=== PATIENT | female | born 1965 | race Caucasian/White ===

== ENCOUNTER 2022-11-26 21:59 | Inpatient (IN) | payer MEDICAID, MEDICARE ==
[~2022-11-26] VITALS: Ht 162.6 cm; Wt 64.9 kg
[2022-11-26] MEDS ORDERED: IPRATROPIUM BROMIDE (0.02%) 0.5MG/2.5ML NEB HHN STA (22:18)
[2022-11-26] MEDS ORDERED: ALBUTEROL (0.083%) 2.5MG/3ML NEB HHN STA (22:18)
[2022-11-26 22:50] LABS: HEMATOCRIT. 30.9 % (36.0-48.0); HEMOGLOBIN. 10.3 g/dL (12.0-16.0); MEAN CORPUSCULAR HEMOGLOBIN 28.8 pg (28.0-32.0); MEAN CORPUSCULAR VOLUME 86.3 fL (81.0-99.0); MEAN PLATELET VOLUME 7.2 fl (7.4-10.4); PLATELET 67 x1000/uL (130-400); RED BLOOD CELL COUNT 3.58 mill/uL (4.2-5.4); RED CELL DISTRIBUTION WIDTH 19.2 % (11.6-14.6)
[2022-11-26 22:59] LABS: CHLORIDE 108 mEq/L (98-107)
[2022-11-26 23:08] LABS: PLATELET ESTIMATE DECREASED
[2022-11-26] MEDS ORDERED: PREDNISONE 20MG TABLET PO STA (23:41)
[2022-11-27] MEDS ORDERED: MORPHINE SULFATE 4 MG/ML CPJ (NOT FOR IM USE) IV ONE (00:15)
[2022-11-27] MEDS ORDERED: CEFTRIAXONE 1GM PREMIX 50 ML IV ONE (00:15)
[2022-11-27] MEDS ORDERED: VANCOMYCIN 1G PREMIX 200 ML IV SCH (00:15)
[2022-11-27] MEDS ORDERED: IPRATROPIUM BROMIDE (0.02%) 0.5MG/2.5ML NEB HHN PRN (11:15)
[2022-11-27 12:00] VITALS: BP 96/55
[2022-11-27 12:51] VITALS: BP 96/55
[2022-11-27] MEDS ORDERED: IPRATROPIUM/ALBUTEROL 0.5-3(2.5)MG/3ML NEB HHN PRN (14:30)
[2022-11-27] MEDS ORDERED: ACETAMINOPHEN 325MG TABLET PO PRN (14:30)
[2022-11-27] MEDS ORDERED: ONDANSETRON HCL 4MG/2ML INJ IV PRN (14:30)
[2022-11-27] MEDS ORDERED: DOCUSATE SODIUM 100MG CAPSULE PO PRN (14:30)
[2022-11-27] MEDS: FAMOTIDINE 20MG/2ML VIAL IV SCH ×2 (14:53→22:34)
[2022-11-27] MEDS: LORAZEPAM 0.5MG TABLET PO PRN (14:53)
[2022-11-27] MEDS: ACETAMINOPHEN 325MG TABLET PO PRN (14:53)
[2022-11-27] MEDS: METHYLPREDNISOLONE SOD SUCC 40 MG/ML VIAL IV SCH ×2 (14:53→22:34)
[2022-11-27] MEDS ORDERED: CEFTRIAXONE 1GM PREMIX 50 ML IV SCH (15:30)
[2022-11-27 15:59] LABS: BG BASE EXCESS -6.7 mmol/L (-2.0-2.0); BG DEOXYHEMOGLOBIN 4.6 % (0.0-5.0); BG FRACTION INSPIRED OXYGEN 40; BG METHEMOGLOBIN 0.3 % (0.0-1.5); BG OXYGEN SATURATION 95.4 % (92.0-98.5); BG OXYHEMOGLOBIN 95.1 % (94.0-97.0); BG PCO2 28.3 mmHg (35.0-45.0); BG PH 7.397 (7.350-7.450); BG PO2 78.1 mmHg (75.0-100.0); BG SAMPLE SITE RIGHT RADIAL; BG TOTAL HEMOGLOBIN 10.1 g/dL (12.0-18.0); BG VENT MODE NASAL CANNULA
[2022-11-27 16:00] VITALS: BP 108/69
[2022-11-27] MEDS ORDERED: NALOXONE HCL 0.4MG/ML VIAL IV PRN (17:30)
[2022-11-27] MEDS: FUROSEMIDE 40MG/4ML VIAL IVP SCH (18:52)
[2022-11-27] MEDS: VANCOMYCIN 750MG PREMIX 150 ML IV SCH (18:52)
[2022-11-27 20:00] VITALS: BP 114/65
[2022-11-27] MEDS: HYDROCODONE/ACETAMINOPHEN 5/325MG TABLET PO PRN (23:24)
[2022-11-28] VITALS: BP 115/70
[2022-11-28] MEDS: CEFTRIAXONE 1,000 MG in DEXTROSE 5% WATER 50 ML IV SCH (01:07)
[2022-11-28 04:00] VITALS: BP 132/73
[2022-11-28] MEDS: VANCOMYCIN 750MG PREMIX 150 ML IV SCH ×2 (05:12→18:50)
[2022-11-28] MEDS: LORAZEPAM 0.5MG TABLET PO PRN ×2 (05:25→09:49)
[2022-11-28] MEDS: HYDROCODONE/ACETAMINOPHEN 5/325MG TABLET PO PRN ×3 (05:25→18:57)
[2022-11-28 06:40] LABS: HEMATOCRIT. 27.7 % (36.0-48.0); HEMOGLOBIN. 9.1 g/dL (12.0-16.0); MEAN CORPUSCULAR HEMOGLOBIN 28.7 pg (28.0-32.0); MEAN CORPUSCULAR VOLUME 87.4 fL (81.0-99.0); MEAN PLATELET VOLUME 7.9 fl (7.4-10.4); RED BLOOD CELL COUNT 3.17 mill/uL (4.2-5.4); RED CELL DISTRIBUTION WIDTH 19.7 % (11.6-14.6)
[2022-11-28] MEDS: METHYLPREDNISOLONE SOD SUCC 40 MG/ML VIAL IV SCH (07:15)
[2022-11-28 08:27] LABS: PLATELET 37 x1000/uL (130-400)
[2022-11-28] MEDS ORDERED: TRAZODONE HCL 50MG TABLET PO PRN (09:00)
[2022-11-28] MEDS: FAMOTIDINE 20MG/2ML VIAL IV SCH ×2 (09:49→21:15)
[2022-11-28] MEDS: ARIPIPRAZOLE 5MG TABLET PO SCH (09:49)
[2022-11-28] MEDS: FUROSEMIDE 40MG/4ML VIAL IVP SCH (09:49)
[2022-11-28] MEDS ORDERED: LACTULOSE 20G/30ML UDC PO PRN (10:00)
[2022-11-28] MEDS: FUROSEMIDE 40MG TABLET PO SCH (11:41)
[2022-11-28 11:42] LABS: PLATELET ESTIMATE MARKEDLY DECREASED
[2022-11-28 12:00] VITALS: BP 133/79
[2022-11-28 13:22] LABS: INR 1.4; PROTHROMBIN TIME 14.9 sec (9.6-11.0)
[2022-11-28] MEDS: IPRATROPIUM BROMIDE (0.02%) 0.5MG/2.5ML NEB HHN SCH ×2 (14:00→20:46)
[2022-11-28 15:14] LABS: HEPATITIS B SURFACE ANTIGEN NEGATIVE
[2022-11-28 16:00] VITALS: BP 129/80
[2022-11-28] MEDS: PREDNISONE 20MG TABLET PO SCH (17:10)
[2022-11-28 20:00] VITALS: BP 133/71
[2022-11-28] MEDS: BUDESONIDE 0.5MG/2ML NEB HHN SCH (20:46)
[2022-11-29] VITALS: BP 135/74
[2022-11-29] MEDS: CEFTRIAXONE 1,000 MG in DEXTROSE 5% WATER 50 ML IV SCH (01:08)
[2022-11-29] MEDS: IPRATROPIUM BROMIDE (0.02%) 0.5MG/2.5ML NEB HHN SCH ×3 (01:09→19:56)
[2022-11-29 04:00] VITALS: BP 130/79
[2022-11-29] MEDS: VANCOMYCIN 750MG PREMIX 150 ML IV SCH ×3 (04:22→22:14)
[2022-11-29 08:00] VITALS: BP 132/72
[2022-11-29] MEDS: BUDESONIDE 0.5MG/2ML NEB HHN SCH ×2 (08:16→19:56)
[2022-11-29] MEDS: HYDROCODONE/ACETAMINOPHEN 5/325MG TABLET PO PRN (08:52)
[2022-11-29] MEDS: FUROSEMIDE 40MG TABLET PO SCH (08:52)
[2022-11-29] MEDS: PREDNISONE 20MG TABLET PO SCH ×2 (08:52→17:43)
[2022-11-29] MEDS: ARIPIPRAZOLE 5MG TABLET PO SCH (08:52)
[2022-11-29] MEDS: FAMOTIDINE 20MG/2ML VIAL IV SCH ×2 (08:53→20:35)
[2022-11-29 12:00] VITALS: BP 155/85
[2022-11-29] MEDS: HYDROCODONE/ACETAMINOPHEN 10/325MG TABLET PO PRN ×2 (13:18→17:43)
[2022-11-29] MEDS: LORAZEPAM 0.5MG TABLET PO PRN ×2 (14:31→20:35)
[2022-11-29 14:45] LABS: HEMATOCRIT. 27.3 % (36.0-48.0); MEAN CORPUSCULAR HEMOGLOBIN 28.3 pg (28.0-32.0); MEAN CORPUSCULAR VOLUME 85.9 fL (81.0-99.0); MEAN PLATELET VOLUME 8.8 fl (7.4-10.4); RED BLOOD CELL COUNT 3.17 mill/uL (4.2-5.4); RED CELL DISTRIBUTION WIDTH 19.7 % (11.6-14.6)
[2022-11-29 14:55] LABS: PLATELET 48 x1000/uL (130-400)
[2022-11-29 15:19] LABS: PLATELET ESTIMATE MARKEDLY DECREASED
[2022-11-29 16:00] VITALS: BP 148/81
[2022-11-29 20:00] VITALS: BP 153/81
[2022-11-30] VITALS: BP 155/73
[2022-11-30] MEDS: IPRATROPIUM BROMIDE (0.02%) 0.5MG/2.5ML NEB HHN SCH ×2 (00:51→20:57)
[2022-11-30] MEDS: CEFTRIAXONE 1,000 MG in DEXTROSE 5% WATER 50 ML IV SCH (01:47)
[2022-11-30] MEDS: HYDROCODONE/ACETAMINOPHEN 10/325MG TABLET PO PRN (01:54)
[2022-11-30 04:00] VITALS: BP 153/80
[2022-11-30] MEDS: LORAZEPAM 0.5MG TABLET PO PRN (04:31)
[2022-11-30] MEDS: VANCOMYCIN 750MG PREMIX 150 ML IV SCH ×3 (05:02→20:58)
[2022-11-30] MEDS: PREDNISONE 20MG TABLET PO SCH ×2 (06:22→19:00)
[2022-11-30 08:00] VITALS: BP 121/82
[2022-11-30] MEDS: ARIPIPRAZOLE 5MG TABLET PO SCH (09:15)
[2022-11-30] MEDS: FAMOTIDINE 20MG/2ML VIAL IV SCH (09:15)
[2022-11-30] MEDS: FUROSEMIDE 40MG TABLET PO SCH (09:15)
[2022-11-30] MEDS: METHADONE HCL 10MG TABLET PO SCH ×2 (11:56→19:01)
[2022-11-30 12:00] VITALS: BP 152/75
[2022-11-30 13:11] LABS: CHLORIDE 105 mEq/L (98-107)
[2022-11-30 16:00] VITALS: BP 150/74
[2022-11-30 20:00] VITALS: BP 156/75
[2022-11-30] MEDS: BUDESONIDE 0.5MG/2ML NEB HHN SCH (20:57)
[2022-11-30] MEDS: FAMOTIDINE 20MG TABLET PO SCH (20:59)
[2022-12-01] VITALS (7 sets, daily range): BP systolic 141–155; BP diastolic 60–83
[2022-12-01] MEDS: CEFTRIAXONE 1,000 MG in DEXTROSE 5% WATER 50 ML IV SCH (00:23)
[2022-12-01] MEDS: IPRATROPIUM BROMIDE (0.02%) 0.5MG/2.5ML NEB HHN SCH ×4 (01:00→22:03)
[2022-12-01] MEDS: VANCOMYCIN 750MG PREMIX 150 ML IV SCH (05:36)
[2022-12-01] MEDS: METHYLPREDNISOLONE SOD SUCC 40 MG/ML VIAL IV SCH ×3 (05:44→19:06)
[2022-12-01 06:45] LABS: CHLORIDE 106 mEq/L (98-107)
[2022-12-01 07:14] LABS: HEMATOCRIT. 26.5 % (36.0-48.0); HEMOGLOBIN. 8.7 g/dL (12.0-16.0); MEAN PLATELET VOLUME 8.2 fl (7.4-10.4); PLATELET 54 x1000/uL (130-400); RED BLOOD CELL COUNT 3.12 mill/uL (4.2-5.4); RED CELL DISTRIBUTION WIDTH 19.5 % (11.6-14.6)
[2022-12-01] MEDS: FAMOTIDINE 20MG TABLET PO SCH ×2 (08:28→20:46)
[2022-12-01] MEDS: FUROSEMIDE 40MG TABLET PO SCH (08:29)
[2022-12-01] MEDS: HYDROXYCHLOROQUINE SULFATE 200MG TABLET PO SCH (08:29)
[2022-12-01] MEDS: METHADONE HCL 10MG TABLET PO SCH ×2 (08:29→19:05)
[2022-12-01] MEDS: ARIPIPRAZOLE 5MG TABLET PO SCH (08:30)
[2022-12-01 08:57] LABS: CREATINE KINASE 25 IU/L (26-192)
[2022-12-01] MEDS: BUDESONIDE 0.5MG/2ML NEB HHN SCH ×2 (09:02→22:03)
[2022-12-01 09:07] LABS: HIV SCREEN 4G Non Reactive (Non Reactive)
[2022-12-01 10:30] LABS: VANCOMYCIN TROUGH 82.2 ug/mL (5.0-10.0)
[2022-12-01 11:24] LABS: PLATELET ESTIMATE DECREASED
[2022-12-01] MEDS: SODIUM HYPOCHLORITE SOLUTION (0.5%)FULL STRENGTH TOP SCH ×2 (12:00→19:05)
[2022-12-01] MEDS: LORAZEPAM 0.5MG TABLET PO PRN (15:30)
[2022-12-01] MEDS: FUROSEMIDE 40MG/4ML VIAL IVP SCH (19:16)
[2022-12-01 22:44] LABS: CLARITY URINE CLEAR (CLEAR); COLOR URINE YELLOW (YELLOW); KETONES URINE NEGATIVE (NEGATIVE); LEUKOCYTE ESTERASE URINE NEGATIVE (NEGATIVE); NITRITE URINE NEGATIVE (NEGATIVE); OCCULT BLOOD URINE 3+ (NEGATIVE); PROTEIN URINE NEGATIVE (NEGATIVE); SPECIFIC GRAVITY URINE 1.007 (1.005-1.030); UROBILINOGEN URINE 0.2 E.U./dL (0.2-1.0)
[2022-12-02] VITALS: BP 168/79
[2022-12-02] MEDS: CLONIDINE 0.1MG TABLET PO PRN ×2 (01:16→23:52)
[2022-12-02] MEDS: IPRATROPIUM BROMIDE (0.02%) 0.5MG/2.5ML NEB HHN SCH ×2 (01:24→10:03)
[2022-12-02] MEDS: CEFTRIAXONE 1,000 MG in DEXTROSE 5% WATER 50 ML IV SCH (02:48)
[2022-12-02] MEDS: METHYLPREDNISOLONE SOD SUCC 40 MG/ML VIAL IV SCH ×5 (02:48→23:52)
[2022-12-02 04:00] VITALS: BP 117/68
[2022-12-02 06:15] LABS: HEMATOCRIT. 28.2 % (36.0-48.0); HEMOGLOBIN. 9.3 g/dL (12.0-16.0); MEAN CORPUSCULAR VOLUME 85.2 fL (81.0-99.0); MEAN PLATELET VOLUME 8.3 fl (7.4-10.4); PLATELET 59 x1000/uL (130-400); RED BLOOD CELL COUNT 3.31 mill/uL (4.2-5.4)
[2022-12-02 08:00] VITALS: BP 149/86
[2022-12-02] MEDS: FUROSEMIDE 40MG/4ML VIAL IVP SCH (09:07)
[2022-12-02] MEDS: FAMOTIDINE 20MG TABLET PO SCH ×2 (09:08→20:31)
[2022-12-02] MEDS: ARIPIPRAZOLE 5MG TABLET PO SCH (09:08)
[2022-12-02] MEDS: HYDROXYCHLOROQUINE SULFATE 200MG TABLET PO SCH (09:08)
[2022-12-02] MEDS: METHADONE HCL 10MG TABLET PO SCH ×2 (09:08→17:11)
[2022-12-02 09:47] LABS: PLATELET ESTIMATE DECREASED
[2022-12-02] MEDS: BUDESONIDE 0.5MG/2ML NEB HHN SCH (10:04)
[2022-12-02 10:07] LABS: ANTI-CENTROMERE B ANTIBODIES < 0.2 AI (0.0-0.9); ANTI-JO 1 ABS <0.2 AI (0.0-0.9); RNP ANTIBODY < 0.2 AI (0.0-0.9)
[2022-12-02] MEDS: SODIUM HYPOCHLORITE SOLUTION (0.5%)FULL STRENGTH TOP SCH ×2 (11:58→17:10)
[2022-12-02 12:00] VITALS: BP 159/60
[2022-12-02 16:00] VITALS: BP 159/71
[2022-12-02 17:07] LABS: ANA IFA Negative (.)
[2022-12-02 20:00] VITALS: BP 168/77
[2022-12-02] MEDS ORDERED: VANCOMYCIN 750MG PREMIX 150 ML IV NR (21:00)
[2022-12-02] MEDS: CEFTRIAXONE 1GM PREMIX 50 ML IV SCH (23:52)
[2022-12-03] VITALS: BP 157/93
[2022-12-03 04:00] VITALS: BP 157/69
[2022-12-03] MEDS: METHYLPREDNISOLONE SOD SUCC 40 MG/ML VIAL IV SCH ×3 (05:57→17:54)
[2022-12-03 08:00] VITALS: BP 174/62
[2022-12-03 08:27] LABS: CHLORIDE 103 mEq/L (98-107)
[2022-12-03 09:06] LABS: G6PD RBC 3.21 x10E6/uL (3.77-5.28)
[2022-12-03] MEDS: HYDROXYCHLOROQUINE SULFATE 200MG TABLET PO SCH (09:13)
[2022-12-03] MEDS: FAMOTIDINE 20MG TABLET PO SCH ×2 (09:13→20:38)
[2022-12-03] MEDS: FUROSEMIDE 40MG/4ML VIAL IVP SCH (09:13)
[2022-12-03] MEDS: METHADONE HCL 10MG TABLET PO SCH ×2 (09:13→17:54)
[2022-12-03] MEDS: SODIUM HYPOCHLORITE SOLUTION (0.5%)FULL STRENGTH TOP SCH ×2 (09:14→16:59)
[2022-12-03] MEDS: ARIPIPRAZOLE 5MG TABLET PO SCH (09:22)
[2022-12-03 10:09] LABS: HEMATOCRIT. 29.3 % (36.0-48.0); HEMOGLOBIN. 9.7 g/dL (12.0-16.0); MEAN CORPUSCULAR HEMOGLOBIN 28.3 pg (28.0-32.0); MEAN CORPUSCULAR VOLUME 85.4 fL (81.0-99.0); MEAN PLATELET VOLUME 8.1 fl (7.4-10.4); PLATELET 63 x1000/uL (130-400); RED BLOOD CELL COUNT 3.43 mill/uL (4.2-5.4); RED CELL DISTRIBUTION WIDTH 19.4 % (11.6-14.6)
[2022-12-03 11:01] LABS: PLATELET ESTIMATE DECREASED
[2022-12-03 12:00] VITALS: BP 147/75
[2022-12-03 13:07] LABS: ANTI-DNA DOUBLE STRANDED QUANT 1 IU/mL (0-9)
[2022-12-03 16:00] VITALS: BP 174/82
[2022-12-03] MEDS ORDERED: NALOXONE HCL 0.4MG/ML VIAL IV PRN (16:15)
[2022-12-03 17:07] LABS: G6PD QUANTITATIVE 398 (127-427)
[2022-12-03] MEDS ORDERED: IPRATROPIUM/ALBUTEROL 0.5-3(2.5)MG/3ML NEB HHN SCH (17:30)
[2022-12-03 20:00] VITALS: BP 149/63
[2022-12-03] MEDS: VANCOMYCIN 750MG PREMIX 150 ML IV SCH (20:37)
[2022-12-03] MEDS: TRAZODONE HCL 50MG TABLET PO SCH (20:38)
[2022-12-04] VITALS: BP 149/53
[2022-12-04] MEDS: METHYLPREDNISOLONE SOD SUCC 40 MG/ML VIAL IV SCH ×2 (00:25→06:28)
[2022-12-04] MEDS: CEFTRIAXONE 1GM PREMIX 50 ML IV SCH (00:25)
[2022-12-04] MEDS: HYDROCODONE/ACETAMINOPHEN 10/325MG TABLET PO PRN (00:33)
[2022-12-04 08:00] VITALS: BP 152/55
[2022-12-04] MEDS: IPRATROPIUM BROMIDE (0.02%) 0.5MG/2.5ML NEB HHN SCH ×3 (08:03→22:20)
[2022-12-04] MEDS: ALBUTEROL (0.083%) 2.5MG/3ML NEB HHN SCH ×3 (08:03→22:21)
[2022-12-04] MEDS: FUROSEMIDE 40MG/4ML VIAL IVP SCH (08:17)
[2022-12-04] MEDS: METHADONE HCL 10MG TABLET PO SCH ×2 (08:17→17:00)
[2022-12-04] MEDS: ARIPIPRAZOLE 5MG TABLET PO SCH (08:18)
[2022-12-04] MEDS: SODIUM HYPOCHLORITE SOLUTION (0.5%)FULL STRENGTH TOP SCH ×2 (08:18→14:39)
[2022-12-04] MEDS: FAMOTIDINE 20MG TABLET PO SCH ×2 (08:18→21:52)
[2022-12-04] MEDS: HYDROXYCHLOROQUINE SULFATE 200MG TABLET PO SCH (08:18)
[2022-12-04 09:06] LABS: ALDOLASE 12.5 U/L (3.3-10.3); ANTI-CARDIOLIPIN AB IGA < 9 APL U/mL (0-11); ANTI-CARDIOLIPIN AB IGG < 9 GPL U/mL (0-14); ANTI-CARDIOLIPIN AB IGM < 9 MPL U/mL (0-12)
[2022-12-04] MEDS: ACETAMINOPHEN 325MG TABLET PO PRN ×2 (11:27→21:52)
[2022-12-04] MEDS: FOLIC ACID 1MG TABLET PO SCH (11:27)
[2022-12-04] MEDS: PREDNISONE 20MG TABLET PO SCH ×2 (11:31→18:15)
[2022-12-04 12:00] VITALS: BP 134/40
[2022-12-04] MEDS ORDERED: METHOTREXATE SODIUM 2 . 5MG TABLET PO SCH ×3 (12:00→18:00)
[2022-12-04 13:07] LABS: ACTIN (SMOOTH MUSCLE) ANTIBODY 36 Units (0-19); ANGIOTENSION CONVERTING ENZYME 90 U/L (14-82); ATYPICAL P-ANCA <1:20 titer (Neg:<1:20); CYTOPLASMIC C-ANCA <1:20 titer (Neg:<1:20); PERINUCLEAR P-ANCA <1:20 titer (Neg:<1:20)
[2022-12-04] MEDS: CEFEPIME 2,000 MG in DEXT 5% WATER 100 ML IV SCH (14:59)
[2022-12-04] MEDS ORDERED: SODIUM POLYSTYRENE SULFONATE 15 G/60 ML BOT PO NR (15:00)
[2022-12-04 16:00] VITALS: BP 97/57
[2022-12-04 17:06] LABS: HLA CLASS 1 ANTIBODY Positive (Negative); IIb/IIIa ANTIBODY Positive (Negative); Ib/IX ANTIBODY Negative (Negative)
[2022-12-04 20:00] VITALS: BP 163/74
[2022-12-04] MEDS: TRAZODONE HCL 50MG TABLET PO SCH (21:52)
[2022-12-04] MEDS: VANCOMYCIN 750MG PREMIX 150 ML IV SCH (22:37)
[2022-12-05] VITALS: BP 136/73
[2022-12-05] MEDS ORDERED: CEFTRIAXONE 1GM PREMIX 50 ML IV SCH (01:00)
[2022-12-05] MEDS: CEFEPIME 2,000 MG in DEXT 5% WATER 100 ML IV SCH (02:52)
[2022-12-05 04:00] VITALS: BP 147/94
[2022-12-05] MEDS: ACETAMINOPHEN 325MG TABLET PO PRN (06:01)
[2022-12-05] MEDS: PREDNISONE 20MG TABLET PO SCH ×2 (07:50→19:11)
[2022-12-05 08:28] VITALS: BP 119/72
[2022-12-05] MEDS: METHADONE HCL 10MG TABLET PO SCH (09:36)
[2022-12-05] MEDS: FOLIC ACID 1MG TABLET PO SCH (09:36)
[2022-12-05] MEDS: ALBUTEROL (0.083%) 2.5MG/3ML NEB HHN SCH ×2 (09:36→18:00)
[2022-12-05] MEDS: IPRATROPIUM BROMIDE (0.02%) 0.5MG/2.5ML NEB HHN SCH ×2 (09:36→18:00)
[2022-12-05] MEDS: HYDROXYCHLOROQUINE SULFATE 200MG TABLET PO SCH (09:36)
[2022-12-05] MEDS: ARIPIPRAZOLE 5MG TABLET PO SCH (09:36)
[2022-12-05] MEDS: SODIUM HYPOCHLORITE SOLUTION (0.5%)FULL STRENGTH TOP SCH ×2 (09:37→17:36)
[2022-12-05] MEDS: FUROSEMIDE 40MG/4ML VIAL IVP SCH (09:37)
[2022-12-05] MEDS: FAMOTIDINE 20MG TABLET PO SCH ×2 (09:37→22:15)
[2022-12-05 12:00] VITALS: BP 132/67
[2022-12-05 13:07] LABS: ANTI-MYELOPEROXIDASE AB < 0.2 units (0.0-0.9); ANTI-PROTEINASE 3 ABS < 0.2 units (0.0-0.9)
[2022-12-05] MEDS: MEROPENEM-0.9% SODIUM CHLORIDE 100 ML IV SCH ×2 (13:37→22:18)
[2022-12-05 16:00] VITALS: BP 128/80
[2022-12-05 20:00] VITALS: BP 138/63
[2022-12-05] MEDS: TRAZODONE HCL 50MG TABLET PO SCH (22:15)
[2022-12-06] VITALS: BP 135/63
[2022-12-06] MEDS: IPRATROPIUM BROMIDE (0.02%) 0.5MG/2.5ML NEB HHN SCH ×3 (00:26→16:09)
[2022-12-06] MEDS: ALBUTEROL (0.083%) 2.5MG/3ML NEB HHN SCH ×3 (00:26→16:09)
[2022-12-06 04:00] VITALS: BP 137/57
[2022-12-06] MEDS: MEROPENEM-0.9% SODIUM CHLORIDE 100 ML IV SCH (05:43)
[2022-12-06] MEDS: ACETAMINOPHEN 325MG TABLET PO PRN ×2 (05:51→09:29)
[2022-12-06 07:22] LABS: HEMATOCRIT. 26.2 % (36.0-48.0); HEMOGLOBIN. 8.9 g/dL (12.0-16.0); MEAN CORPUSCULAR HEMOGLOBIN 29.3 pg (28.0-32.0); MEAN CORPUSCULAR VOLUME 86.7 fL (81.0-99.0); MEAN PLATELET VOLUME 7.7 fl (7.4-10.4); PLATELET 68 x1000/uL (130-400); RED BLOOD CELL COUNT 3.02 mill/uL (4.2-5.4); RED CELL DISTRIBUTION WIDTH 19.5 % (11.6-14.6)
[2022-12-06 08:00] VITALS: BP 124/54
[2022-12-06] MEDS: SODIUM HYPOCHLORITE SOLUTION (0.5%)FULL STRENGTH TOP SCH ×2 (09:00→17:00)
[2022-12-06] MEDS: FUROSEMIDE 40MG/4ML VIAL IVP SCH (09:22)
[2022-12-06] MEDS: HYDROXYCHLOROQUINE SULFATE 200MG TABLET PO SCH (09:29)
[2022-12-06] MEDS: ARIPIPRAZOLE 5MG TABLET PO SCH (09:29)
[2022-12-06] MEDS: PREDNISONE 20MG TABLET PO SCH ×2 (09:30→17:59)
[2022-12-06] MEDS: FAMOTIDINE 20MG TABLET PO SCH ×2 (09:30→20:25)
[2022-12-06] MEDS: FOLIC ACID 1MG TABLET PO SCH (09:30)
[2022-12-06 12:00] VITALS: BP 134/62
[2022-12-06] MEDS: METHADONE HCL 10MG TABLET PO SCH ×2 (12:57→17:59)
[2022-12-06 14:15] LABS: PLATELET ESTIMATE DECREASED
[2022-12-06 16:00] VITALS: BP 149/98
[2022-12-06] MEDS: MEROPENEM-0.9% SODIUM CHLORIDE 50 ML IV SCH (16:02)
[2022-12-06 20:00] VITALS: BP 141/66
[2022-12-06] MEDS: TRAZODONE HCL 50MG TABLET PO SCH (20:37)
[2022-12-07] VITALS: BP 140/59
[2022-12-07] MEDS: MEROPENEM-0.9% SODIUM CHLORIDE 50 ML IV SCH ×4 (00:11→21:59)
[2022-12-07] MEDS: ALBUTEROL (0.083%) 2.5MG/3ML NEB HHN SCH ×4 (00:44→21:31)
[2022-12-07] MEDS: IPRATROPIUM BROMIDE (0.02%) 0.5MG/2.5ML NEB HHN SCH ×4 (00:44→21:31)
[2022-12-07 04:00] VITALS: BP 136/67
[2022-12-07] MEDS: METHADONE HCL 10MG TABLET PO SCH ×2 (05:57→18:17)
[2022-12-07 08:00] VITALS: BP 130/47
[2022-12-07] MEDS: HYDROXYCHLOROQUINE SULFATE 200MG TABLET PO SCH (08:24)
[2022-12-07] MEDS: FAMOTIDINE 20MG TABLET PO SCH ×2 (08:24→21:03)
[2022-12-07] MEDS: PREDNISONE 20MG TABLET PO SCH ×2 (08:24→18:17)
[2022-12-07] MEDS: ARIPIPRAZOLE 5MG TABLET PO SCH (08:24)
[2022-12-07] MEDS: FOLIC ACID 1MG TABLET PO SCH (08:24)
[2022-12-07] MEDS: FUROSEMIDE 40MG/4ML VIAL IVP SCH (08:24)
[2022-12-07] MEDS: SODIUM HYPOCHLORITE SOLUTION (0.5%)FULL STRENGTH TOP SCH ×2 (08:25→18:18)
[2022-12-07 12:00] VITALS: BP 156/55
[2022-12-07 16:00] VITALS: BP 142/77
[2022-12-07] MEDS: ACETAMINOPHEN 325MG TABLET PO PRN (16:12)
[2022-12-07 20:00] VITALS: BP 140/63
[2022-12-07] MEDS: TRAZODONE HCL 50MG TABLET PO SCH (21:03)
[2022-12-08] VITALS: BP 149/63
[2022-12-08 04:00] VITALS: BP 117/66
[2022-12-08] MEDS: MEROPENEM-0.9% SODIUM CHLORIDE 50 ML IV SCH ×4 (06:00→21:29)
[2022-12-08 08:00] VITALS: BP 147/64
[2022-12-08] MEDS: SODIUM HYPOCHLORITE SOLUTION (0.5%)FULL STRENGTH TOP SCH (09:00)
[2022-12-08] MEDS: IPRATROPIUM BROMIDE (0.02%) 0.5MG/2.5ML NEB HHN SCH ×2 (09:10→15:57)
[2022-12-08] MEDS: ALBUTEROL (0.083%) 2.5MG/3ML NEB HHN SCH ×2 (09:10→15:56)
[2022-12-08] MEDS: ARIPIPRAZOLE 5MG TABLET PO SCH (09:43)
[2022-12-08] MEDS: FAMOTIDINE 20MG TABLET PO SCH ×2 (09:43→21:29)
[2022-12-08] MEDS: METHADONE HCL 10MG TABLET PO SCH ×2 (09:44→18:14)
[2022-12-08] MEDS: HYDROXYCHLOROQUINE SULFATE 200MG TABLET PO SCH (09:45)
[2022-12-08] MEDS: PREDNISONE 20MG TABLET PO SCH ×2 (09:45→18:14)
[2022-12-08] MEDS: FOLIC ACID 1MG TABLET PO SCH (09:45)
[2022-12-08 12:00] VITALS: BP 141/69
[2022-12-08] MEDS: FUROSEMIDE 40MG/4ML VIAL IVP SCH (13:14)
[2022-12-08 16:00] VITALS: BP 135/81
[2022-12-08 20:00] VITALS: BP 137/63
[2022-12-08] MEDS: BUDESONIDE 0.5MG/2ML NEB HHN SCH (21:14)
[2022-12-08] MEDS: TRAZODONE HCL 50MG TABLET PO SCH (21:29)
[2022-12-09] VITALS: BP 139/54
[2022-12-09 04:00] VITALS: BP 136/51
[2022-12-09] MEDS: ACETAMINOPHEN 325MG TABLET PO PRN (05:27)
[2022-12-09] MEDS: MEROPENEM-0.9% SODIUM CHLORIDE 50 ML IV SCH ×3 (05:29→23:56)
[2022-12-09 08:00] VITALS: BP 147/57
[2022-12-09] MEDS: BUDESONIDE 0.5MG/2ML NEB HHN SCH ×2 (08:06→20:31)
[2022-12-09] MEDS: FAMOTIDINE 20MG TABLET PO SCH ×2 (09:00→23:46)
[2022-12-09] MEDS: ARIPIPRAZOLE 5MG TABLET PO SCH (09:00)
[2022-12-09] MEDS: METHADONE HCL 10MG TABLET PO SCH ×2 (09:00→17:40)
[2022-12-09] MEDS: SODIUM HYPOCHLORITE SOLUTION (0.5%)FULL STRENGTH TOP SCH (09:00)
[2022-12-09] MEDS: HYDROXYCHLOROQUINE SULFATE 200MG TABLET PO SCH (09:00)
[2022-12-09] MEDS: FUROSEMIDE 40MG/4ML VIAL IVP SCH (09:01)
[2022-12-09] MEDS: FOLIC ACID 1MG TABLET PO SCH (09:01)
[2022-12-09] MEDS: PREDNISONE 20MG TABLET PO SCH ×2 (09:24→17:40)
[2022-12-09 12:00] VITALS: BP 151/64
[2022-12-09] MEDS ORDERED: IPRATROPIUM/ALBUTEROL 0.5-3(2.5)MG/3ML NEB HHN PRN (14:15)
[2022-12-09] MEDS ORDERED: IPRATROPIUM BROMIDE (0.02%) 0.5MG/2.5ML NEB HHN PRN (14:30)
[2022-12-09] MEDS ORDERED: ALBUTEROL (0.083%) 2.5MG/3ML NEB HHN PRN (14:30)
[2022-12-09 16:00] VITALS: BP 147/70
[2022-12-09] MEDS ORDERED: IPRATROPIUM/ALBUTEROL 0.5-3(2.5)MG/3ML NEB HHN SCH (18:00)
[2022-12-09 20:00] VITALS: BP 156/65
[2022-12-09] MEDS: IPRATROPIUM BROMIDE (0.02%) 0.5MG/2.5ML NEB HHN SCH (20:32)
[2022-12-09] MEDS: ALBUTEROL (0.083%) 2.5MG/3ML NEB HHN SCH (20:32)
[2022-12-09] MEDS ORDERED: NALOXONE HCL 0.4MG/ML VIAL IV PRN (23:15)
[2022-12-09] MEDS: TRAZODONE HCL 50MG TABLET PO SCH (23:46)
[2022-12-09] MEDS: HYDROCODONE/ACETAMINOPHEN 5/325MG TABLET PO PRN (23:57)
[2022-12-10] VITALS: BP 148/64
[2022-12-10] MEDS: ALBUTEROL (0.083%) 2.5MG/3ML NEB HHN SCH ×4 (01:50→20:17)
[2022-12-10] MEDS: IPRATROPIUM BROMIDE (0.02%) 0.5MG/2.5ML NEB HHN SCH ×4 (01:50→20:18)
[2022-12-10 04:00] VITALS: BP 95/59
[2022-12-10] MEDS: PREDNISONE 20MG TABLET PO SCH ×2 (06:11→16:53)
[2022-12-10] MEDS: ACETAMINOPHEN 325MG TABLET PO PRN (06:11)
[2022-12-10] MEDS: BUDESONIDE 0.5MG/2ML NEB HHN SCH ×2 (07:54→20:17)
[2022-12-10 08:00] VITALS: BP 145/58
[2022-12-10] MEDS: FUROSEMIDE 40MG/4ML VIAL IVP SCH (09:00)
[2022-12-10] MEDS: FAMOTIDINE 20MG TABLET PO SCH ×2 (09:00→21:35)
[2022-12-10] MEDS: HYDROXYCHLOROQUINE SULFATE 200MG TABLET PO SCH (09:00)
[2022-12-10] MEDS: METHADONE HCL 10MG TABLET PO SCH ×2 (09:00→16:53)
[2022-12-10] MEDS: SODIUM HYPOCHLORITE SOLUTION (0.5%)FULL STRENGTH TOP SCH ×2 (09:00→16:53)
[2022-12-10] MEDS: ARIPIPRAZOLE 5MG TABLET PO SCH (09:00)
[2022-12-10] MEDS: FOLIC ACID 1MG TABLET PO SCH (09:00)
[2022-12-10 12:00] VITALS: BP 153/81
[2022-12-10] MEDS: MEROPENEM-0.9% SODIUM CHLORIDE 50 ML IV SCH (14:00)
[2022-12-10 16:00] VITALS: BP 144/91
[2022-12-10 20:00] VITALS: BP 156/63
[2022-12-10] MEDS: TRAZODONE HCL 50MG TABLET PO SCH (21:36)
[2022-12-10] MEDS: HYDROCODONE/ACETAMINOPHEN 5/325MG TABLET PO PRN (21:46)
[2022-12-11] VITALS: BP 151/74
[2022-12-11] MEDS: ALBUTEROL (0.083%) 2.5MG/3ML NEB HHN SCH ×3 (00:45→14:31)
[2022-12-11] MEDS: IPRATROPIUM BROMIDE (0.02%) 0.5MG/2.5ML NEB HHN SCH ×3 (00:45→14:32)
[2022-12-11 04:00] VITALS: BP 159/72
[2022-12-11] MEDS: METHADONE HCL 10MG TABLET PO SCH (06:37)
[2022-12-11] MEDS: HYDROCODONE/ACETAMINOPHEN 5/325MG TABLET PO PRN ×2 (07:18→15:51)
[2022-12-11 08:00] VITALS: BP 155/73
[2022-12-11] MEDS: BUDESONIDE 0.5MG/2ML NEB HHN SCH (08:07)
[2022-12-11] MEDS: FUROSEMIDE 40MG/4ML VIAL IVP SCH (08:57)
[2022-12-11] MEDS: HYDROXYCHLOROQUINE SULFATE 200MG TABLET PO SCH (08:58)
[2022-12-11] MEDS: PREDNISONE 20MG TABLET PO SCH ×2 (08:58→17:16)
[2022-12-11] MEDS: ARIPIPRAZOLE 5MG TABLET PO SCH (08:58)
[2022-12-11] MEDS: FOLIC ACID 1MG TABLET PO SCH (08:59)
[2022-12-11] MEDS: FAMOTIDINE 20MG TABLET PO SCH (08:59)
[2022-12-11] MEDS: SODIUM HYPOCHLORITE SOLUTION (0.5%)FULL STRENGTH TOP SCH ×2 (09:00→16:34)
[2022-12-11 12:00] VITALS: BP 164/95
[2022-12-11 16:00] VITALS: BP 145/80
[2022-12-11 17:46] VITALS: BP 145/80
[2022-12-12] MEDS ORDERED: P50 MT (17:38)
== END 2022-12-11 18:40 | disposition home or self-care (01) | DRG 720 ==
LOC: ER 22:20 → 7EST 11-27 01:04 → EDBEDREQ 11-27 01:07 → EDBEDREQTM 11-27 01:07 → 6EST 12-04 16:00
PROVIDERS: ADMIT Internal Medicine; ATTEND Internal Medicine
DX: A41.51 Sepsis due to Escherichia coli [E. coli] (principal); J96.00 Acute respiratory failure, unspecified whether with hypoxia or hypercapnia; I50.33 Acute on chronic diastolic (congestive) heart failure; E87.20 Acidosis, unspecified; E44.1 Mild protein-calorie malnutrition; D69.6 Thrombocytopenia, unspecified; D68.9 Coagulation defect, unspecified; E83.51 Hypocalcemia; E88.09 Other disorders of plasma-protein metabolism, not elsewhere classified; R65.20 Severe sepsis without septic shock; J44.1 Chronic obstructive pulmonary disease with (acute) exacerbation; J84.9 Interstitial pulmonary disease, unspecified; Z20.822 Contact with and (suspected) exposure to COVID-19; D50.9 Iron deficiency anemia, unspecified; F31.30 Bipolar disorder, current episode depressed, mild or moderate severity, unspecified; F17.210 Nicotine dependence, cigarettes, uncomplicated; G89.29 Other chronic pain; K74.60 Unspecified cirrhosis of liver; L03.115 Cellulitis of right lower limb; L03.116 Cellulitis of left lower limb; L97.929 Non-pressure chronic ulcer of unspecified part of left lower leg with unspecified severity; L97.919 Non-pressure chronic ulcer of unspecified part of right lower leg with unspecified severity; M32.9 Systemic lupus erythematosus, unspecified; D69.59 Other secondary thrombocytopenia; M33.20 Polymyositis, organ involvement unspecified; I77.6 Arteritis, unspecified; M19.90 Unspecified osteoarthritis, unspecified site; Z88.6 Allergy status to analgesic agent; Z91.51 Personal history of suicidal behavior; Z79.899 Other long term (current) drug therapy; Z79.891 Long term (current) use of opiate analgesic; Z68.24 Body mass index [BMI] 24.0-24.9, adult
CPT/HCPCS: 36415; 36600; 71045; 73590; 73630; 73718; 76700; 80048; 80053; 80076; 80202; 81003; 82085; 82164; 82375; 82550; 82595; 82805; 82955; 83520; 83605; 83880; 84132; 84145; 84484; 85025; 85041; 85379; 85651; 86022; 86147; 86160; 86225; 86235; 86256; 86332; 86431; 86705; 86709; 86803; 87070; 87075; 87076; 87077; 87186; 87340; 87389; 93005; 93306; 93923; 93970; 94640; 97116; 97162; 99285; C1893; J0692; J0696; J1940; J2185; J2270; J2405; J2920; J3370; J3490; J7060; J7512; J7626; J8610

== ENCOUNTER 2022-12-12 12:54 | Emergency (ER) | payer MEDICARE ==
[~2022-12-12] VITALS: Ht 154.9 cm; Wt 59.0 kg
[2022-12-12 14:21] LABS: HEMATOCRIT. 28.1 % (36.0-48.0); HEMOGLOBIN. 9.3 g/dL (12.0-16.0); MEAN CORPUSCULAR VOLUME 87.8 fL (81.0-99.0); MEAN PLATELET VOLUME 7.2 fl (7.4-10.4); PLATELET 69 x1000/uL (130-400); RED CELL DISTRIBUTION WIDTH 21.6 % (11.6-14.6)
[2022-12-12 14:29] LABS: CHLORIDE 108 mEq/L (98-107)
[2022-12-12 14:31] LABS: INR 1.2; PARTIAL THROMBOPLASTIN TIME 29.9 sec (23.4-31.0); PROTHROMBIN TIME 12.3 sec (9.6-11.0)
[2022-12-12 14:42] LABS: HCG SCREEN NEGATIVE
[2022-12-12 15:16] LABS: PLATELET ESTIMATE DECREASED
[2022-12-12] MEDS ORDERED: METHYLPREDNISOLONE SOD SUCC 125 MG/2 ML VIAL IV ONE (15:45)
[2022-12-12] MEDS ORDERED: IPRATROPIUM/ALBUTEROL 0.5-3(2.5)MG/3ML NEB HHN ONE (15:45)
[2022-12-12] MEDS ORDERED: MORPHINE SULFATE 4 MG/ML CPJ (NOT FOR IM USE) IV ONE (15:45)
[2022-12-12] MEDS ORDERED: FUROSEMIDE 40MG/4ML VIAL IVP ONE (15:45)
[2022-12-12] MEDS ORDERED: ACETAMINOPHEN 325MG TABLET PO ONE (15:45)
[2022-12-12] MEDS ORDERED: P50 MT (17:38)
[2022-12-12 18:00] VITALS: BP 148/70
[2022-12-15] MEDS ORDERED: HYDR200T35 PO (22:38)
[2022-12-15] MEDS ORDERED: TRAZ-251 PO (22:38)
[2022-12-15] MEDS ORDERED: ALBU18HF2 IH (22:38)
[2022-12-15] MEDS ORDERED: ABIL5 PO (22:38)
[2022-12-15] MEDS ORDERED: FAMO20TA8 PO (22:38)
[2022-12-15] MEDS ORDERED: FURO40TA5 MT (22:38)
[2022-12-15] MEDS ORDERED: METH2.5T PO ×2 (22:38)
== END 2022-12-12 18:47 | disposition home or self-care (01) ==
LOC: ER 13:16
DX: I50.9 Heart failure, unspecified (principal); J44.9 Chronic obstructive pulmonary disease, unspecified
CPT/HCPCS: 36415; 71045; 80053; 83880; 84484; 84703; 85025; 85610; 85730; 93005; 94640; 96374; 96375; 99285; C1893; J1940; J2270; J2930; Z7610

== ENCOUNTER 2022-12-17 04:28 | Inpatient (IN) | payer MEDICARE ==
[~2022-12-17] VITALS: Ht 162.6 cm; Wt 67.6 kg
[~2022-12-17 04:28] MED LIST: ABIL5 PO; ALBU18HF2 IH; FAMO20TA8 PO; FURO40TA5 MT; HYDR200T35 PO; METH2.5T PO; P50 MT; TRAZ-251 PO
[2022-12-17] MEDS ORDERED: ALBUTEROL (0.083%) 2.5MG/3ML NEB HHN STA (07:59)
[2022-12-17] MEDS ORDERED: IPRATROPIUM BROMIDE (0.02%) 0.5MG/2.5ML NEB HHN STA (07:59)
[2022-12-17] MEDS ORDERED: METHYLPREDNISOLONE SOD SUCC 125 MG/2 ML VIAL IV STA (07:59)
[2022-12-17 08:53] LABS: CHLORIDE 112 mEq/L (98-107)
[2022-12-17 09:04] LABS: HEMATOCRIT. 21.9 % (36.0-48.0); HEMOGLOBIN. 7.1 g/dL (12.0-16.0); MEAN CORPUSCULAR HEMOGLOBIN 29.1 pg (28.0-32.0); MEAN CORPUSCULAR VOLUME 90.2 fL (81.0-99.0); MEAN PLATELET VOLUME 9.1 fl (7.4-10.4); RED BLOOD CELL COUNT 2.43 mill/uL (4.2-5.4); RED CELL DISTRIBUTION WIDTH 22.1 % (11.6-14.6)
[2022-12-17 09:49] LABS: PLATELET ESTIMATE DECREASED
[2022-12-17 09:53] LABS: PLATELET 13 x1000/uL (130-400)
[2022-12-17] MEDS ORDERED: METHYLPREDNISOLONE SOD SUCC 125 MG/2 ML VIAL IV NR (11:00)
[2022-12-17] MEDS ORDERED: IPRATROPIUM/ALBUTEROL 0.5-3(2.5)MG/3ML NEB HHN PRN (17:45)
[2022-12-17] MEDS ORDERED: ONDANSETRON HCL 4MG/2ML INJ IV PRN (17:45)
[2022-12-17] MEDS ORDERED: DIPHENHYDRAMINE 50MG/ML VIAL IV PRN (17:45)
[2022-12-17] MEDS ORDERED: CLONIDINE 0.1MG TABLET PO PRN (17:45)
[2022-12-17] MEDS ORDERED: ACETAMINOPHEN 325MG TABLET PO PRN (17:45)
[2022-12-17] MEDS: METHYLPREDNISOLONE SOD SUCC 125 MG/2 ML VIAL IV SCH (18:30)
[2022-12-17] MEDS ORDERED: CEFTRIAXONE 1GM PREMIX 50 ML IV SCH (18:30)
[2022-12-17] MEDS: FUROSEMIDE 40MG/4ML VIAL IV SCH (18:32)
[2022-12-17] MEDS ORDERED: DEXT 5%/0.9% NACL 1,000 ML IV SCH (19:45)
[2022-12-17 20:00] VITALS: BP 156/95
[2022-12-17] MEDS ORDERED: AZITHROMYCIN 500 MG in DEXT 5% WATER 250 ML IV SCH (20:00)
[2022-12-17] MEDS ORDERED: OCTREOTIDE 1,000 MCG in SODIUM CHLORIDE 0.9% 98 ML IV SCH (20:30)
[2022-12-17 22:15] LABS: INR 1.3; PROTHROMBIN TIME 13.7 sec (9.6-11.0)
[2022-12-17 22:30] VITALS: BP 189/58
[2022-12-17 23:00] VITALS: BP 152/82
[2022-12-17] MEDS ORDERED: CEFTRIAXONE 1,000 MG in DEXTROSE 5% WATER 50 ML IV SCH (23:00)
[2022-12-17] MEDS: PANTOPRAZOLE SODIUM 40 MG/VIAL IV SCH (23:00)
[2022-12-17 23:30] VITALS: BP 152/96
[2022-12-18] VITALS (63 sets, daily range): BP systolic 38–198; BP diastolic 16–126
[2022-12-18] MEDS: METHYLPREDNISOLONE SOD SUCC 125 MG/2 ML VIAL IV SCH ×2 (00:34→05:24)
[2022-12-18] MEDS ORDERED: DEXTROSE 50% WATER 50ML SYRINGE IV PRN (01:15)
[2022-12-18] MEDS ORDERED: LORAZEPAM 2MG/ML CPJ IV PRN (01:30)
[2022-12-18] MEDS ORDERED: MORPHINE SULFATE 2 MG/ML CPJ (NOT FOR IM USE) IV PRN (01:30)
[2022-12-18] MEDS ORDERED: PROPOFOL 10MG/ML 100ML 100 ML IV PRN (02:30)
[2022-12-18] MEDS ORDERED: PHENYLEPHRINE 100 MG in DEXT 5% WATER 240 ML IV PRN (02:30)
[2022-12-18 03:37] LABS: BG BASE EXCESS -9.3 mmol/L (-2.0-2.0); BG CARBOXYHEMOGLOBIN 0.2 % (0.5-1.5); BG DEOXYHEMOGLOBIN 1.6 % (0.0-5.0); BG FRACTION INSPIRED OXYGEN 100; BG HCO3 ACT 19.4 mmol/L (22.0-26.0); BG METHEMOGLOBIN 0.5 % (0.0-1.5); BG OXYGEN SATURATION 98.4 % (92.0-98.5); BG OXYHEMOGLOBIN 97.7 % (94.0-97.0); BG PCO2 55.4 mmHg (35.0-45.0); BG PH 7.162 (7.350-7.450); BG PO2 169.1 mmHg (75.0-100.0); BG SAMPLE SITE LEFT RADIAL; BG TOTAL HEMOGLOBIN 11.4 g/dL (12.0-18.0); BG TOTAL RESPIRATORY RATE 16 b/min; BG VENT MODE VENT - AC
[2022-12-18] MEDS ORDERED: SODIUM CHLORIDE 0.9% 500 ML IV NR (03:45)
[2022-12-18] MEDS ORDERED: ACETAMINOPHEN 650MG SUPP PR PRN (03:45)
[2022-12-18] MEDS: BLOOD SUGAR DIAGNOSTIC STRIP TEST SCH ×2 (05:39→12:56)
[2022-12-18] MEDS: INSULIN LISPRO 100 UNITS/ML SUBCUT SCH ×2 (05:41→12:00)
[2022-12-18] MEDS ORDERED: METOPROLOL TARTRATE 5MG/5ML VIAL IV NR (06:00)
[2022-12-18 06:01] LABS: HEMATOCRIT. 25.8 % (36.0-48.0); HEMOGLOBIN. 8.1 g/dL (12.0-16.0); MEAN CORPUSCULAR HEMOGLOBIN 28.7 pg (28.0-32.0); MEAN CORPUSCULAR VOLUME 91.9 fL (81.0-99.0); MEAN PLATELET VOLUME 8.6 fl (7.4-10.4); RED BLOOD CELL COUNT 2.81 mill/uL (4.2-5.4)
[2022-12-18 06:06] LABS: CLARITY URINE CLEAR (CLEAR); COLOR URINE YELLOW (YELLOW); KETONES URINE NEGATIVE (NEGATIVE); LEUKOCYTE ESTERASE URINE NEGATIVE (NEGATIVE); NITRITE URINE NEGATIVE (NEGATIVE); OCCULT BLOOD URINE 2+ (NEGATIVE); PROTEIN URINE 2+ (NEGATIVE); SPECIFIC GRAVITY URINE 1.016 (1.005-1.030)
[2022-12-18 06:11] LABS: INR 1.4; PROTHROMBIN TIME 14.3 sec (9.6-11.0)
[2022-12-18 06:28] LABS: CHLORIDE 109 mEq/L (98-107)
[2022-12-18 06:29] LABS: *AMPHETAMINES SCREEN URINE NEGATIVE (NEGATIVE); *BARBITURATES SCREEN URINE NEGATIVE (NEGATIVE); *BENZODIAZEPINES SCREEN URINE NEGATIVE (NEGATIVE); *COCAINE SCREEN URINE NEGATIVE (NEGATIVE); CANNABINOID URINE SCREEN NEGATIVE (NEGATIVE); OPIATES URINE SCREEN NEGATIVE (NEGATIVE); PHENCYCLIDINE URINE SCREEN NEGATIVE (NEGATIVE)
[2022-12-18] MEDS ORDERED: BLOOD SUGAR DIAGNOSTIC STRIP TEST SCH (06:30)
[2022-12-18 06:35] LABS: METHADONE URINE SCREEN PRESUMTIVE POSITIVE (NEGATIVE)
[2022-12-18] MEDS ORDERED: INSULIN LISPRO 100 UNITS/ML SUBCUT SCH (07:00)
[2022-12-18] MEDS ORDERED: LORAZEPAM 2MG/ML CPJ IV NR (07:15)
[2022-12-18 07:46] LABS: TOTAL IRON BINDING CAPACITY 285 ug/dL (250-450)
[2022-12-18 07:55] LABS: BG BASE EXCESS -13.4 mmol/L (-2.0-2.0); BG CARBOXYHEMOGLOBIN 0.2 % (0.5-1.5); BG DEOXYHEMOGLOBIN 6.6 % (0.0-5.0); BG HCO3 ACT 15.5 mmol/L (22.0-26.0); BG METHEMOGLOBIN 0.4 % (0.0-1.5); BG OXYGEN SATURATION 93.4 % (92.0-98.5); BG OXYHEMOGLOBIN 92.8 % (94.0-97.0); BG PCO2 50.1 mmHg (35.0-45.0); BG PH 7.107 (7.350-7.450); BG PO2 96.3 mmHg (75.0-100.0); BG SAMPLE SITE RIGHT RADIAL; BG VENT MODE VENT - AC
[2022-12-18] MEDS ORDERED: SODIUM BICARBONATE 8.4% 1 MEQ/ML 50ML SYR IV NR (08:00)
[2022-12-18] MEDS ORDERED: LEVETIRACETAM 1,000 MG in SODIUM CHLORIDE 0.9% 100 ML IV NR (08:30)
[2022-12-18] MEDS: FUROSEMIDE 40MG/4ML VIAL IV SCH (09:27)
[2022-12-18] MEDS: PANTOPRAZOLE SODIUM 40 MG/VIAL IV SCH (09:27)
[2022-12-18 09:45] LABS: PLATELET 40 x1000/uL (130-400)
[2022-12-18] MEDS ORDERED: NALOXONE HCL 0.4MG/ML VIAL IV PRN (09:45)
[2022-12-18] MEDS ORDERED: VECURONIUM BROMIDE 10 MG/VIAL IV ONE (09:51)
[2022-12-18] MEDS ORDERED: SODIUM CHLORIDE 0.9% 10ML VIAL ONE (09:51)
[2022-12-18] MEDS ORDERED: ETOMIDATE 2MG/ML 10ML VIAL IV ONE (09:51)
[2022-12-18 10:10] LABS: VITAMIN B12 SERUM 1753 pg/mL (211-911)
[2022-12-18 10:32] LABS: BG BASE EXCESS -9.3 mmol/L (-2.0-2.0); BG CARBOXYHEMOGLOBIN 0.3 % (0.5-1.5); BG DEOXYHEMOGLOBIN 5.2 % (0.0-5.0); BG FRACTION INSPIRED OXYGEN 80; BG HCO3 ACT 17.1 mmol/L (22.0-26.0); BG METHEMOGLOBIN 0.2 % (0.0-1.5); BG OXYGEN SATURATION 94.8 % (92.0-98.5); BG OXYHEMOGLOBIN 94.3 % (94.0-97.0); BG PCO2 38.9 mmHg (35.0-45.0); BG PO2 91.9 mmHg (75.0-100.0); BG SAMPLE SITE RIGHT RADIAL; BG TOTAL HEMOGLOBIN 8.6 g/dL (12.0-18.0); BG VENT MODE VENT - AC
[2022-12-18] MEDS ORDERED: IPRATROPIUM/ALBUTEROL 0.5-3(2.5)MG/3ML NEB HHN PRN (10:45)
[2022-12-18 11:06] LABS: FOLIC ACID (FOLATE) SERUM > 20.00 ng/mL (>5.38)
[2022-12-18] MEDS ORDERED: LIDOCAINE HCL 1% 10 MG/ML 10ML VIAL ONE (11:07)
[2022-12-18] MEDS ORDERED: IPRATROPIUM/ALBUTEROL 0.5-3(2.5)MG/3ML NEB HHN SCH (12:00)
[2022-12-18] MEDS ORDERED: NOREPINEPHRINE 32 MG in DEXT 5% WATER 218 ML IV PRN (12:00)
[2022-12-18] MEDS ORDERED: PHYTONADIONE 10MG/ML AMP SUBCUT SCH (12:15)
[2022-12-18] MEDS ORDERED: CEFEPIME 2,000 MG in DEXT 5% WATER 100 ML IV SCH (12:30)
[2022-12-18] MEDS ORDERED: IRON SUCROSE COMPLEX 100 MG/5 ML ML IV NR (12:30)
[2022-12-18] MEDS ORDERED: METRONIDAZOLE 500 MG PREMIX 100 ML IV SCH (13:00)
[2022-12-18 13:24] LABS: FERRITIN 378 ng/mL (10-291)
[2022-12-18] MEDS ORDERED: CALCIUM CHLORIDE 1GM/10ML SYR IV ONE (13:43)
[2022-12-18] MEDS ORDERED: AMIODARONE HCL 50MG/ML 3ML VIAL IV ONE (13:43)
[2022-12-18] MEDS ORDERED: SODIUM BICARBONATE 8.4% 1 MEQ/ML 50ML SYR IV ONE (13:43)
[2022-12-18] MEDS ORDERED: EPINEPHRINE 0.1MG/ML (1:10,000) 10ML SYR ONE (13:43)
[2022-12-18] MEDS ORDERED: DEXTROSE 50% WATER 50ML SYRINGE IV ONE (13:43)
[2022-12-18] MEDS ORDERED: VASOPRESSIN 20 UNIT in SODIUM CHLORIDE 0.9% 99 ML IV PRN (14:00)
[2022-12-18] MEDS ORDERED: RIFAXIMIN 550 MG TABLET NG SCH (21:00)
[2022-12-18] MEDS ORDERED: LEVETIRACETAM 500MG PREMIX 100 ML IV SCH (21:00)
[2022-12-18] MEDS ORDERED: LACTULOSE 20G/30ML UDC NG SCH (22:00)
== END 2022-12-18 16:54 | DRG 720 ==
LOC: ER 04:51 → 7WST 17:51 → MICUSO 22:10
PROVIDERS: ADMIT Internal Medicine; ATTEND Internal Medicine
PROC: 5A1935Z Respiratory Ventilation, Less than 24 Consecutive Hours (ICD-10-PCS; principal; 2022-12-18)
PROC: 5A12012 Performance of Cardiac Output, Single, Manual (ICD-10-PCS; 2022-12-18)
PROC: 0BH17EZ Insertion of Endotracheal Airway into Trachea, Via Natural or Artificial Opening (ICD-10-PCS; 2022-12-18)
PROC: 05HY33Z Insertion of Infusion Device into Upper Vein, Percutaneous Approach (ICD-10-PCS; 2022-12-18)
PROC: B54MZZA Ultrasonography of Right Upper Extremity Veins, Guidance (ICD-10-PCS; 2022-12-18)
DX: A41.9 Sepsis, unspecified organism (principal); I46.9 Cardiac arrest, cause unspecified; J18.9 Pneumonia, unspecified organism; J96.01 Acute respiratory failure with hypoxia; D69.6 Thrombocytopenia, unspecified; E87.4 Mixed disorder of acid-base balance; J96.02 Acute respiratory failure with hypercapnia; J44.0 Chronic obstructive pulmonary disease with (acute) lower respiratory infection; K92.2 Gastrointestinal hemorrhage, unspecified; K76.82 Hepatic encephalopathy; Z66 Do not resuscitate; I11.0 Hypertensive heart disease with heart failure; I50.32 Chronic diastolic (congestive) heart failure; F17.210 Nicotine dependence, cigarettes, uncomplicated; D64.9 Anemia, unspecified; E87.5 Hyperkalemia; L03.90 Cellulitis, unspecified; K74.60 Unspecified cirrhosis of liver; M33.20 Polymyositis, organ involvement unspecified; Z88.6 Allergy status to analgesic agent; Z79.899 Other long term (current) drug therapy
CPT/HCPCS: 31500; 36415; 36573; 36600; 71045; 80053; 80076; 80305; 81003; 82140; 82375; 82607; 82728; 82746; 82805; 82962; 83036; 83540; 83550; 83880; 84145; 84484; 85025; 85044; 86850; 86900; 86920; 87070; 87077; 87186; 87426; 92950; 93005; 93970; 94002; 94003; 94640; 94644; 99285; C1725; C9113; J0282; J0456; J0692; J0696; J1200; J1815; J1940; J1953; J2060; J2270; J2354; J2405; J2704; J2930; J3490; J7042; J7050; J7060